=== PATIENT | female | born 1960 | race Caucasian/White ===

== ENCOUNTER 2017-03-22 18:59 | Emergency (ER) | payer MEDICAID, MEDICARE ==
[2017-03-22 23:16] LABS: #Basophils 0.1 thou/uL (0.0-0.2); #Eosinphils 0.1 thou/uL (0.0-0.7); #Lymphocytes 1.6 thou/uL (1.20-3.40); #Monocytes 0.4 thou/uL (0.11-0.59); #Neutrophils 6.2 thou/uL (1.40-6.50); %Basophils 0.8 % (0.0-1.0); %Eosinophils 0.8 % (0.0-10.0); %Lymphocytes 18.7 % (21.0-51.0); %Monocytes 5.3 % (0.0-10.0); Hematocrit 41.1 % (36.0-47.0); Mean Platelet Volume 6.7 fL (7.4-10.4); Red Blood Cell (RBC) Count 4.48 mill/uL (4.20-5.40); White Blood Cell (WBC) Count 8.3 thou/uL (4.8-10.8)
--- NOTE | 2017-03-22 23:25 | CT ---
CT BRAIN WITHOUT CONTRAST: 03/22/17 HISTORY: Altered mental status. FINDINGS: Comparison is made with exam of 11/04/09. No evidence of acute infarct, hemorrhage or midline shift or abnormal extra-axial fluid collections are seen. The ventricular size is appropriate and the basilar cisterns are patent. The bony calvariu m is intact. The visualized paranasal sinuses and mastoid air cells are well aerated. IMPRESSION: No CT evidence of acute intracranial process. POS: [facility]
[2017-03-22 23:39] LABS: Anion Gap 14 mmol/L (10-20); BUN (Urea Nitrogen) 14 mg/dL (9.8-20.1); CK (CPK) 127 U/L (29-168); Calc. Creatinine Clearance 0 mL/min (70-130); Calcium 9.4 mg/dL (7.8-10.44); Carbon Dioxide 29 mmol/L (22-29); Chloride 98 mmol/L (98-107); Estimated GFR-MDRD 37
[2017-03-22 23:45] LABS: Troponin I Less than 0.010 ng/mL (< 0.028)
[2017-03-22 23:59] LABS: Bilirubin Negative (Negative); Blood, Urine Negative (Negative); Glucose, Urine (Dipstick) Negative (Negative); Ketone, Urine Negative (Negative); Nitrite Positive (Negative); Protein, Urine (Dipstick) Negative (Neg-Trace)
[2017-03-23 00:02] LABS: Bacteria/HPF 4+ HPF (None Seen); Hyaline Casts/LPF 0-3 HYALINE CAST LPF (0-3 Hyaline); RBC/HPF 0-3 HPF (0-3); Squamous Epithelial 0-3 HPF (0-3)
[2017-03-23 00:07] LABS: Amphetamine Not Detected (NotDetected); Methadone Not Detected (NotDetected); Methamphetamine Not Detected (NotDetected)
[2017-03-23] MEDS ORDERED: Potassium Chloride 20 MEQ TAB ONE (00:29)
[2017-03-23] MEDS ORDERED: cefTRIAXone\\ROCEPHIN 2 GM VIAL ONE (00:29)
== END 2017-03-23 01:03 | disposition home or self-care (01) ==
LOC: ERS 18:59
DX: E87.6 Hypokalemia (principal); N39.0 Urinary tract infection, site not specified; E78.5 Hyperlipidemia, unspecified; I10 Essential (primary) hypertension; I48.91 Unspecified atrial fibrillation; J44.9 Chronic obstructive pulmonary disease, unspecified; F41.9 Anxiety disorder, unspecified; F32.9 Major depressive disorder, single episode, unspecified; F17.210 Nicotine dependence, cigarettes, uncomplicated; Z79.899 Other long term (current) drug therapy
CPT/HCPCS: 36415; 70450; 80048; 80306; 81003; 81015; 82553; 84484; 85025; 96365; J0696

== ENCOUNTER 2017-03-24 13:49 | Observation (INO) | payer MEDICARE ==
[2017-03-24 14:24] LABS: #Monocytes 1.1 thou/uL (0.11-0.59); #Neutrophils 11.1 thou/uL (1.40-6.50); %Basophils 0.3 % (0.0-1.0); %Eosinophils 0.3 % (0.0-10.0); %Lymphocytes 14.1 % (21.0-51.0); %Monocytes 7.7 % (0.0-10.0); Hematocrit 40.5 % (36.0-47.0); Mean Platelet Volume 7.1 fL (7.4-10.4); Red Blood Cell (RBC) Count 4.41 mill/uL (4.20-5.40); White Blood Cell (WBC) Count 14.2 thou/uL (4.8-10.8)
[2017-03-24 14:45] LABS: ALT (SGPT) Less than 7 U/L (8-55); AST (SGOT) 11 U/L (5-34); Alkaline Phosphatase 59 U/L (40-150); Anion Gap 14 mmol/L (10-20); BUN (Urea Nitrogen) 12 mg/dL (9.8-20.1); Bilirubin, Total 0.9 mg/dL (0.2-1.2); Calc. Creatinine Clearance 0 mL/min (70-130); Calcium 9.4 mg/dL (7.8-10.44); Carbon Dioxide 27 mmol/L (22-29); Chloride 97 mmol/L (98-107); Estimated GFR-MDRD 29; Globulin 2.7 g/dL (2.4-3.5)
--- NOTE | 2017-03-24 14:57 | CT ---
HEAD CT WITHOUT CONTRAST: Date: 03-24-17 Comparison: 03-22-17 History: Altered mental status, urinary tract infection, facial droop. Technique: Serial axial CT imaging at 5 mm intervals from vertex through skull base without contrast . FINDINGS: The imaged paranasal sinuses/mastoid air cells are well aerated. There is no displaced calvarial fra cture, intracranial hemorrhage, midline shift of mass effect. IMPRESSION: No acute findings. POS: [facility]
[2017-03-24 15:38] LABS: Bilirubin Negative (Negative); Blood, Urine Negative (Negative); Glucose, Urine (Dipstick) Negative (Negative); Ketone, Urine Negative (Negative); Nitrite Negative (Negative); Protein, Urine (Dipstick) Negative (Neg-Trace)
[2017-03-24 17:44] LABS: Acetaminophen Less than 6.0 mcg/mL (10.0-30.0); Salicylate Less than 8.0 mg/dL (15.0-30.0)
[2017-03-24 17:46] LABS: Amphetamine Not Detected (NotDetected); Methadone Not Detected (NotDetected); Methamphetamine Not Detected (NotDetected)
[2017-03-24] MEDS ORDERED: Acetaminophen 325 MG TAB PO PRN ×2 (18:28→20:41)
[2017-03-24] MEDS ORDERED: Ondansetron HCl/PF 4 MG/2 ML Vial IVP PRN (18:28)
[2017-03-24] MEDS ORDERED: Ondansetron ODT 4 MG TAB SL PRN (18:28)
[2017-03-24 19:47] VITALS: BMI 29.2
[2017-03-24] MEDS ORDERED: Ondansetron ODT 4 MG TAB PO PRN (20:41)
[2017-03-24] MEDS ORDERED: Diazepam 5 MG TAB PO PRN (22:20)
--- NOTE | 2017-03-24 22:38 | PDOC.EVN ---
Event Note - Event Note Event Note: Attending Addendum I personally evaluated the patient and discussed the management with Dr. Smith. I have reviewed her written H&P and it is repeated by me. I agree with the History, Examination, Assessment and Plan documented above with any addition or exceptions noted below. Mrs Wolfe has a progressive encephalopathy over the past 10 days characterized by waxing and waning awareness of her situation. At the moment she does not have the capacity to make medical deicions but our resident physicians have spoken to her family members and they consent to our care plan. While there is some concern for stroke, on my exam I do appreciate a right facial droop or weakness. I do not a left jaun-madibular swelling and tenderness that is suggestive of an abscess. her dentition is poor. w will obtain an CT scan to better eval this. An MRI of the brain will put to rest concerns for CVA. I also note tremors in her hands and lower legs. She has a hard time cooperating with my exam. I do not appreciate any clonus. Reflexes are brisk. Patient's conversation are mostly incoherent and random. She has no nuchal rigidity. We favor Serotonin Syndrome as the etiology for her encephalopathy. There is no evidence of meningitis. A laboratory workup to rule out other common causes is pending. I have ordered some Valium to help with her agitation. We have stopped all serotonin promoting meds. She is hemodynamically stable. Her vitals are normal. Clinda,ycin has been ordered for a suspected peridontal infection with possible abscess. ENT consult planned for tomorrow. Ct ordered.
[2017-03-24] MEDS: Sodium Chloride 0.9% 1,000 ML IV SCH (22:43)
[2017-03-24] MEDS: Clindamycin 150 MG CAP PO SCH (22:44)
[2017-03-25] MEDS: Potassium Chloride 20 MEQ TAB PO SCH ×2 (01:30→01:42)
[2017-03-25] MEDS ORDERED: Potassium Chloride 40 MEQ in Sodium Chloride 0.9% 250 ML 250 ML IVPB SCH (02:00)
[2017-03-25 04:50] LABS: #Lymphocytes 1.4 thou/uL (1.20-3.40); #Monocytes 0.8 thou/uL (0.11-0.59); %Basophils 0.4 % (0.0-1.0); %Eosinophils 0.5 % (0.0-10.0); %Lymphocytes 17.4 % (21.0-51.0); %Monocytes 9.2 % (0.0-10.0); Hematocrit 36.3 % (36.0-47.0); Mean Platelet Volume 6.7 fL (7.4-10.4); Red Blood Cell (RBC) Count 3.94 mill/uL (4.20-5.40); White Blood Cell (WBC) Count 8.2 thou/uL (4.8-10.8)
[2017-03-25 05:18] LABS: Anion Gap 11 mmol/L (10-20); BUN (Urea Nitrogen) 15 mg/dL (9.8-20.1); Calc. Creatinine Clearance 54 mL/min (70-130); Calcium 8.6 mg/dL (7.8-10.44); Carbon Dioxide 28 mmol/L (22-29); Chloride 99 mmol/L (98-107); Estimated GFR-MDRD 37
[2017-03-25] MEDS: Clindamycin 150 MG CAP PO SCH ×3 (05:42→21:28)
--- NOTE | 2017-03-25 05:55 | PDOC.FM ---
- Subjective Subjective: Patient has no questions or concerns this morning. States that she is ready to be home. She denies fever, chills, chest pain, n/v/d/abd pain. She states that she came to the hospital because she was short of breath. - Objective MAR Reviewed: Yes Vital Signs & Weight: Vital Signs (12 hours) Temp Pulse Resp BP Pulse Ox 03/25/17 03:10 99.2 F 78 18 97/53 L 95 03/25/17 00:00 99.4 F 80 18 103/64 94 L 03/24/17 20:05 99.1 F 86 20 03/24/17 18:23 99.1 F 86 20 103/63 96 Weight Weight 79.651 kg I&O: 03/23/17 03/24/17 03/25/17 06:59 06:59 06:59 Intake Total 480 Balance 480 Result Diagrams: 03/25/17 04:24 03/25/17 04:24 Radiology Reviewed by me: Yes Phys Exam - Physical Examination Constitutional: NAD HEENT: moist MMs, sclera anicteric poor dentition, mandibular mass on left, TTP Neck: supple, full ROM Respiratory: no wheezing, no rales, no rhonchi, clear to auscultation bilateral Cardiovascular: RRR, no significant murmur, no rub Gastrointestinal: soft, non-tender, no distention, positive bowel sounds Strength 5/5 UE/LE, Clonus present b/l, slow movement, rigidity present Neurological: moves all 4 limbs Psychiatric: A&O x 3 Dx/Plan (1) Altered mental status Code(s): R41.82 - ALTERED MENTAL STATUS, UNSPECIFIED Status: Acute Plan: Serotonin syndrome vs CVA vs peridontal abscess Hx difficult to obtain due to altered mentation, Physical exam difficult because of lack of cooperation -suspicion is highest for serotonin syndrome: currently holding serotonin promoting meds -checking brain MRI today -ordered facial bone CT -started clindamycin, IVFs -UA neg, UDS neg, TSH neg (2) Mandibular swelling Code(s): R22.0 - LOCALIZED SWELLING, MASS AND LUMP, HEAD Status: Acute Plan: CT of facial bones today -clindamycin -considering consulting ENT today (3) Weakness Code(s): R53.1 - WEAKNESS Status: Acute Plan: Per pt history, patient is rigid. -likely secondary to #1 (4) ROLANDO (acute kidney injury) Code(s): N17.9 - ACUTE KIDNEY FAILURE, UNSPECIFIED Status: Acute Plan: Cr initially was 1.81, now down to 1.41 -IVFs NS @ 100, will continue to trend (5) HTN (hypertension) Code(s): I10 - ESSENTIAL (PRIMARY) HYPERTENSION Status: Chronic Plan: Holding home blood pressure medications at this time. BP is currently 97/53 -will continue to monitor vitals (6) HLD (hyperlipidemia) Code(s): E78.5 - HYPERLIPIDEMIA, UNSPECIFIED Status: Chronic Plan: Currently holding home meds for now. (7) COPD (chronic obstructive pulmonary disease) Status: Chronic Plan: Monitoring respiratory status and vitals closely -currently holding home meds -patient is currently stable (8) Bipolar disorder Code(s): F31.9 - BIPOLAR DISORDER, UNSPECIFIED Status: Chronic Plan: Holding home meds at this time until we have a better idea of source of AMS
[2017-03-25] MEDS ORDERED: FLU VACC QS2017-18 36 mo. & older 0.5 ML SYRINGE IM ONE (09:00)
[2017-03-25] MEDS ORDERED: Cyproheptadine 4 MG TAB PO SCH (09:00)
--- NOTE | 2017-03-25 10:11 | CT ---
CT FACIAL BONES WITHOUT CONTRAST: Date: 03/25/17 HISTORY: Swelling on left side of face. Evaluate for abscess. COMPARISON: None. TECHNIQUE: Noncontrast maxillofacial CT is performed in the axial plane. Reformatted images are submitted for i nterpretation. Contrast was not administered due to low GFR. FINDINGS: There is adequate aeration of the visualized paranasal sinuses and mastoid air cells. Bilateral pter ygopalatine fossae are symmetric. Visualized brain parenchyma demonstrates age-appropriate atrophy. Bilateral ocular lenses are approp riately located. Both globes are intact. Retrobulbar fat is preserved. Symmetric attenuation of the optic nerves and ocular rectus muscles. Limited evaluation of the oral cavity due to dental amalgam artifact. Midline fatty raphe of the ton may is preserved. With regard to the osseous margin of the maxillofacial bones, no evidence of fracture. There is periapical lucency involving multiple teeth. The osseous margins of the maxillae appear to be maintained. Periapical lucency involving the posterior most right maxillary molar teeth is noted . There is lucency involving the posterior left mandible due to periapical abscess of the posterior most left mandibular molar tooth. Despite lucency, no obvious associated inflammatory change. There is mild asymmetric soft tissue swelling/gingival swelling along the left aspect of the mandibl e. A drainable abscess is not appreciated. There is mild induration of the soft tissues and subcutan eous fat at the level of the mandible. There are borderline enlarged reactive bilateral Level I and Level II lymph nodes. Nonspecific bilateral Level V lymph nodes are noted. IMPRESSION: 1. Periapical lucencies, due to periodontal disease/periapical abscesses. There is evidence of barbara ical erosion of the posterior left mandible, without associated abscess. 2. No CT evidence of a drainable soft tissue abscess. Induration of the subcutaneous fat and soft t issues at the level of the mandible are noted. POS: [facility]
[2017-03-25] MEDS ORDERED: Ibuprofen 600 MG TAB PO PRN (10:20)
--- NOTE | 2017-03-25 11:56 | ADD-PRG ---
DATE OF SERVICE: 03/25/2017 This is an addendum to the note of Dr. Jb Viera. Ms. Wolfe was admitted with probable serotonin syndrome. She is hyperreflexic, extremely "fidgety";results of an MRI are pending. Her CBC demonstrates white count of 8200 with hemoglobin 12.3, hematocrit 36.3. Serum electrolytes are normal. She has an elevated creatinine 1.44 with a GFR of 37. TSH is normal at 0.81. ASSESSMENT: Serotonin syndrome. She has been given benzodiazepines and she is now much calmer. She is no longer fidgety and she no longer has tremor. She does, however, have inducible clonus. Her vital signs are stable. We will therefore continue to monitor her and withhold Periactin. Should her vital signs become unstable, should she develop hyperthermia or should she become agitated, we might consider the use of Periactin. MTDD
--- NOTE | 2017-03-25 16:27 | MRI ---
MRI OF THE BRAIN WITHOUT CONTRAST: Indication: Concern for stroke. Comparison: Noncontrast CT of the brain dated 03-24-17. FINDINGS: No area of restricted diffusion is seen to suggest the presence of acute ischemia. No intracranial h emorrhage is demonstrated. The septum pellucidum and third ventricle are midline. There are appropri ate flow voids seen within the major intracranial vessels. There are a few scattered areas of puncta te foci of T2 hyperintensity within the periventricular subcortical white matter. These are nonspeci fic and can be seen with chronic small vessel white matter ischemic change. The skull and extracrani al soft tissues appear within normal limits. IMPRESSION: 1. No acute intracranial abnormality. 2. Mild chronic small vessel ischemic change. POS: [facility]
[2017-03-25] MEDS: Sodium Chloride 0.9% 1,000 ML IV SCH ×2 (16:38→16:47)
[2017-03-26] MEDS: Sodium Chloride 0.9% 1,000 ML IV SCH (02:15)
[2017-03-26 05:34] LABS: #Eosinphils 0.1 thou/uL (0.0-0.7); #Lymphocytes 1.1 thou/uL (1.20-3.40); #Monocytes 0.5 thou/uL (0.11-0.59); #Neutrophils 4.7 thou/uL (1.40-6.50); %Basophils 0.2 % (0.0-1.0); %Eosinophils 0.9 % (0.0-10.0); Mean Platelet Volume 6.7 fL (7.4-10.4); White Blood Cell (WBC) Count 6.3 thou/uL (4.8-10.8)
[2017-03-26 05:51] LABS: Anion Gap 12 mmol/L (10-20); BUN (Urea Nitrogen) 13 mg/dL (9.8-20.1); Calc. Creatinine Clearance 72 mL/min (70-130); Calcium 8.5 mg/dL (7.8-10.44); Carbon Dioxide 25 mmol/L (22-29); Chloride 104 mmol/L (98-107); Estimated GFR-MDRD 53
[2017-03-26] MEDS: Clindamycin 150 MG CAP PO SCH (05:58)
--- NOTE | 2017-03-26 06:09 | HP-2 ---
CODE STATUS: FULL. PRIMARY CARE PHYSICIAN: Dave Simon DO at [facility]. ATTENDING: Benson Viera M.D. RESIDENT: Kitty Smith DO. HISTORIAN: Sister. CHIEF COMPLAINT: Altered mental status. HISTORY OF PRESENT ILLNESS: The patient is a 56-year-old female with past medical history of hypertension, hyperlipidemia, bipolar disorder and depression who was sent from clinic due to acute altered mental status onset 10 days ago and worsening. She was seen in the ED 2 days ago, diagnosed with UTI, given nitrofurantoin with no improvement. The patient has been living with her sister. Her sister reports that she has had no recent illnesses, no recent medication changes, has had multiple falls within the past 2 days because of lack of stability on her feet. Denies cough, pain of any sort, nausea, vomiting and diarrhea. The sister reports she thinks the patient is taking medications appropriately. In the ER, they did a head CT, which was negative. PAST MEDICAL HISTORY: 1. Hypertension. 2. Hyperlipidemia. 3. Bipolar disorder. 4. Depression. PAST SURGICAL HISTORY: 1. Hysterectomy. 2. Tonsillectomy. ALLERGIES: No known drug allergies. MEDICATIONS: 1. Bupropion 300 mg. 2. Simvastatin 20 mg. 3. Benztropine 1 mg p.o. b.i.d. 4. Lamictal 25 mg. 5. Amlodipine 10 mg. 6. Sertraline 100 mg. FAMILY HISTORY: Noncontributory. SOCIAL HISTORY: No tobacco, alcohol or drug use. REVIEW OF SYSTEMS: Unable to obtain. PHYSICAL EXAMINATION: VITAL SIGNS: Blood pressure 103/63, pulse 86, respiratory rate 20, T-max 99.1, pulse ox 96% on room air. Current weight 79.6 kilograms. GENERAL: The patient is alert and oriented x2, no acute distress, very tremulous throughout. EYES: Dilated pupils at 4 mm. ENT: The patient with poor dentition, also with left mandibular swelling and associated fluctuance, no erythema and is tender to palpation. NECK: Supple, without lymphadenopathy or nuchal rigidity. CARDIOVASCULAR: Regular rate and rhythm. No murmurs. Radial pulses 2+. RESPIRATORY: Normal effort, no retractions, clear to auscultation bilaterally. SKIN: Warm and dry without lesions. ABDOMEN: Soft, nontender. Bowel sounds present. EXTREMITIES: No cyanosis or edema. MUSCULOSKELETAL: Structure within normal limits. Muscle strength 5/5. The patient does have significant rigidity throughout upper extremity and lower extremity. NEUROLOGIC: The patient with possible right cheek decreased sensation, possible right-sided facial droop and a slight tongue deviation to the right on exam. PSYCHIATRIC: Very confused. The patient is not able to follow commands and not able to comprehend questions and respond appropriately. LABORATORY DATA: CBC, white count 14.2, hemoglobin 13.5, hematocrit 40.5, platelets 255. Chemistry: Sodium 135, potassium 3.3, chloride 99, CO2 of 28, BUN 15, creatinine 1.81, glucose 162, calcium 9.4, AST 11, ALT less than 7, alkaline phosphatase 59, total protein 7.0, albumin 4.3, total bilirubin 0.9. Vitamin B12 is 225. UDS is negative. Acetaminophen is negative. Salicylates negative. Alcohol is less than 10. TSH is 0.8148. UA specific gravity 1.011, blood negative, protein negative, leukocyte esterase negative, nitrites negative, ketones negative, glucose negative. IMAGING: Brain CT with no acute findings. ASSESSMENT AND PLAN: 1. Encephalopathy secondary to possible serotonin syndrome versus cerebrovascular accident. Admit to stroke obs. Neuro checks and initiate stroke protocol. The patient is taking Lamictal, bupropion, and Sertraline, initially tachycardic, muscle rigidity, dilated pupils, which leads to possible serotonin syndrome. We will get an MRI in the morning. Check TSH, B12, folate , thiamine, HIV, RPR and hepatitis C levels. We will give Valium for agitation. Urine and blood cultures pending. 2. Left periodontal infection. We will start clindamycin and consult ENT in the morning. 3. Bipolar disorder. I have discontinued all psych medications for now due to possible serotonin syndrome. Valium for agitation. 4. Acute kidney injury. Check urine studies. The patient with maintenance fluids and monitor with BMP in the morning. 5. Hypokalemia, replete and monitor. 6. Hypertension. We will start home amlodipine and Lisinopril/HCTZ combination. DISPOSITION AND LENGTH OF HOSPITAL STAY: 1-2 days. Symptomatic medications will be provided. History and physical exam as well as management were discussed with Dr. Benson Viera. [facility]
--- NOTE | 2017-03-26 06:47 | PDOC.FM ---
- Subjective Subjective: Ms. Wolfe is doing well this morning. States that she is feeling better than yesterday and that she would like to go home today. She denies chest pain, n/v/ d. She still has the tremors. - Objective MAR Reviewed: Yes Vital Signs & Weight: Vital Signs (12 hours) Temp Pulse Resp BP Pulse Ox 03/26/17 03:40 98.8 F 82 18 121/69 97 03/25/17 19:20 98.5 F 90 20 162/73 H 95 Weight Weight 79.651 kg I&O: 03/24/17 03/25/17 03/26/17 06:59 06:59 06:59 Intake Total 480 3371 Output Total 1850 Balance 480 1521 Result Diagrams: 03/26/17 05:23 03/26/17 05:23 Radiology Reviewed by me: Yes Phys Exam - Physical Examination Constitutional: NAD HEENT: moist MMs, sclera anicteric Neck: supple, full ROM Respiratory: no wheezing, no rales, no rhonchi, clear to auscultation bilateral Cardiovascular: RRR, no significant murmur, no rub Gastrointestinal: soft, non-tender, no distention Musculoskeletal: no edema, pulses present Neurological: moves all 4 limbs tremors, clonus still present in both LEs Psychiatric: normal affect, A&O x 3 Dx/Plan (1) Altered mental status Code(s): R41.82 - ALTERED MENTAL STATUS, UNSPECIFIED Status: Acute Plan: Serotonin syndrome vs CVA vs peridontal abscess -Brain MRI negative-mild chronic small vessel ischemic changes, otherwise negative -CT facial bones-periapical abscesses, no drainable soft tissue abscesses -suspicion is highest for serotonin syndrome: currently holding serotonin promoting meds -started clindamycin, IVFs -UA neg, UDS neg, TSH neg (2) Mandibular swelling Code(s): R22.0 - LOCALIZED SWELLING, MASS AND LUMP, HEAD Status: Acute Plan: CT facial bones- showed periapical abscesses, no drainable soft tissue abscess -clindamycin -will need to follow up with dentist op (3) Weakness Code(s): R53.1 - WEAKNESS Status: Acute Plan: Per pt history, patient is rigid. -likely secondary to #1 -symptoms have improved today (4) ROLANDO (acute kidney injury) Code(s): N17.9 - ACUTE KIDNEY FAILURE, UNSPECIFIED Status: Acute Plan: Cr initially was 1.81, now down to 1.07 -IVFs NS @ 100, will continue to trend (5) HTN (hypertension) Code(s): I10 - ESSENTIAL (PRIMARY) HYPERTENSION Status: Chronic Plan: Holding home blood pressure medications at this time. BP is currently 121/69 -will continue to monitor vitals (6) HLD (hyperlipidemia) Code(s): E78.5 - HYPERLIPIDEMIA, UNSPECIFIED Status: Chronic Plan: Currently holding home meds for now. Will continue statin on discharge (7) COPD (chronic obstructive pulmonary disease) Status: Chronic Plan: Monitoring respiratory status and vitals closely -currently holding home meds -patient is currently stable -no changes today (8) Bipolar disorder Code(s): F31.9 - BIPOLAR DISORDER, UNSPECIFIED Status: Chronic Plan: Holding home meds at this time until we have a better idea of source of AMS. Will need to adjust bipolar medications to avoid serotonin syndrome in future She will need close follow up
[2017-03-26 11:20] VITALS: TEMP 98.7
--- NOTE | 2017-03-26 11:20 | ADD-PRG ---
DATE OF SERVICE: 03/26/2017 This is an addendum to the note of Dr. Jb Viera. Ms. Wolfe is awake, alert, oriented this morning. She is in no distress. We have instructed her to stop her SSRI and Wellbutrin. She will resume Lamictal and follow up with [facility] for further adjustm ent of her medications. Serotonin syndrome has resolved and she is now ready for discharge.
[2017-03-26 12:54] VITALS: BP 117/69
[2017-03-26 15:30] LABS: Folate,Hemolysate 295.9 ng/mL (Not Estab.); Hematocrit 34.5 % (34.0-46.6); RBC Folate Test Component 858 ng/mL (>498)
[2017-03-26] MEDS ORDERED: Atorvastatin Calcium 10 MG TAB PO SCH (21:00)
--- NOTE | 2017-03-27 07:03 | DIS-2 ---
DATE OF ADMISSION: 03/24/2017 DATE OF DISCHARGE: 03/26/2017 RESIDENT: Jb Viera MD ADMITTING ATTENDING: Benson Viera M.D. DISCHARGE ATTENDING: Wang Mckenna MD CONSULTATIONS: None. PROCEDURES: 1. Brain CT. Impression: No acute findings. 2. Brain MRI. Impression: No acute intracranial abnormalities, mild chronic small vessel ischemic changes. 3. CT of facial bones. Impression: Periapical lucencies due to periodontal disease/periapical abs cesses. There is evidence of cortical erosion of the posterior left mandible, without associated ab scess. No CT evidence of drainable soft tissue abscess. Induration of subcutaneous fat and soft ti ssue at the level of the mandible are noted. PRIMARY DIAGNOSIS: Serotonin syndrome. SECONDARY DIAGNOSES: 1. Periapical abscess. 2. Altered mental status. 3. Weakness. 4. Hypertension. 5. Hyperlipidemia. 6. Acute kidney injury. 7. Bipolar disorder. DISCHARGE MEDICATIONS: 1. Simvastatin 20 mg p.o. daily. 2. Amlodipine 10 mg p.o. daily. 3. Lamotrigine 25 mg p.o. daily. 4. Clindamycin 600 mg p.o. q.8 hours for 7 days. DISCONTINUED MEDICATIONS: 1. Lisinopril/HCTZ 20/12.5 one tablet p.o. daily. 2. Benztropine 1 mg p.o. b.i.d. 3. Zoloft 100 mg p.o. daily. 4. Wellbutrin-XL 300 mg p.o. daily. HISTORY OF PRESENT ILLNESS AND HOSPITAL COURSE: Sonya Wolfe is a 56-year-old female with past [facility] history of hypertension, hyperlipidemia, bipolar disorder and depression who was sent over from [facility] due to acute altered mental status, onset 10 days ago. She was seen in the ED 2 days ago diagnosed with UTI and given nitrofurantoin that has not had any improvement. The patient has been living with her sister. The sister reports that she has had no recent illnesse s. No medication changes. She has had multiple falls within the last 2 days because of the lack of stability. The sister reports that she thinks the patient was taking her medications appropriately prior to this admission. The altered mental status had been waxing and waning, starting 10 days ag o and worsening over the last 3 days. In the ER, they did a head CT which was negative. The patien victor manuel was admitted to observation and the patient's Lamictal, bupropion, and sertraline were held. The patient's physical exam was significant for tachycardia, muscle rigidity, dilated pupils, and clonus . Stroke was ruled out with brain MRI. A CT of the head and brain MRI that were negative with the exception of chronic small vessel ischemic changes. The patient's physical exam was also remarkable for swelling of the left mandible. On CT of facial bones, it was found that she had periapical abs cesses, but no drainable soft tissue abscess. She was started on clindamycin. The patient was diag nosed with serotonin syndrome and we considered starting cyproheptadine on the patient, but her bloo d pressure was fairly low at 97/53. So cyproheptadine was held and the patient was monitored closel y. Her symptoms began to resolve. On the day of discharge, physical therapy saw the patient and re commended that she will be sent home with home health physical therapy and a rolling walker. The stuart mendoza's mental status improved during the admission. The patient's creatine kinase was normal on ad [place] and remained normal throughout the admission. TSH was normal. B12 is normal. Folate was n ormal. Syphilis, hepatitis C and HIV were nonreactive. UDS was negative. After the patient had im provement of her symptoms by 03/26/2017, she was ready for discharge. The patient was advised to no t continue the Wellbutrin or sertraline after discharge and to follow up with [facility] within 1 to 3 day s of discharge. The patient was also recommended to follow up with primary care physician to rechec k blood pressure and manage hypertension medications. He was also recommended that the patient foll ow up with dentist as soon as possible. The patient was in agreement with this plan. DISPOSITION: Guarded. DISCHARGE INSTRUCTIONS: 1. Location: Home with family support. 2. Diet: Heart healthy. 3. Activity: As tolerated. 4. Followup: Follow up with [facility] within the next 1-3 days and primary care physician at [facility] within the next 1-3 days and with the dentist as soon as possible.
[2017-03-27] MEDS ORDERED: lamoTRIgine 25 MG TAB PO SCH (09:00)
== END 2017-03-26 12:40 | disposition home or self-care (01) ==
LOC: ERS 13:49 → 2SW 16:55
PROVIDERS: ADMIT Family Medicine; ATTEND Family Medicine
DX: G92 Toxic encephalopathy (principal); T42.6X5A Adverse effect of other antiepileptic and sedative-hypnotic drugs, initial encounter; K04.7 Periapical abscess without sinus; R41.82 Altered mental status, unspecified; R53.1 Weakness; I10 Essential (primary) hypertension; E78.5 Hyperlipidemia, unspecified; N17.9 Acute kidney failure, unspecified; F31.9 Bipolar disorder, unspecified; E87.6 Hypokalemia; F17.200 Nicotine dependence, unspecified, uncomplicated; R22.0 Localized swelling, mass and lump, head; J44.9 Chronic obstructive pulmonary disease, unspecified; R25.1 Tremor, unspecified; Z79.2 Long term (current) use of antibiotics
CPT/HCPCS: 51701; 70450; 70486; 70551; 80048 ×2; 80306; 80307; 81003; 82550 ×2; 82570; 82607; 82747; 82962; 84300; 84425; 84443; 85014; 85025 ×2; 86780; 86803; 87040; 87086; 87389; 90732; 93005; 96361 ×3; 96365; 96366; 97110; 97116 ×2; 97139 ×2; 97530; 99285; G0008; G0009; G0378; G8978; G8979; G8987; G8988; Q2036; 36415; 36416; 80053; 90471; 90682; A4216; G8996-GN-CI; G8996-GN-CJ; G8997-GN-CH; G8997-GN-CI; J3480; J7050

== ENCOUNTER 2018-09-07 14:59 | Observation (INO) | payer MEDICARE ==
[2018-09-07 15:31] LABS: #Basophils 0.1 thou/uL (0.0-0.2); #Eosinphils 0.1 thou/uL (0.0-0.7); #Lymphocytes 3.5 thou/uL (1.20-3.40); #Monocytes 0.8 thou/uL (0.11-0.59); #Neutrophils 6.6 thou/uL (1.40-6.50); %Basophils 0.8 % (0.0-1.0); %Eosinophils 1.2 % (0.0-10.0); %Lymphocytes 31.2 % (21.0-51.0); %Monocytes 7.4 % (0.0-10.0); %Neutrophils 59.4 % (42.0-75.0); Hemoglobin 14.6 g/dL (12.0-16.0); Mean Corpuscular Hemoglobin 30.3 pg (27.0-31.0); Mean Corpuscular Volume 89.2 fL (78.0-98.0); Mean Platelet Volume 6.8 fL (7.4-10.4); Platelet Count 312 thou/uL (130-400); RBC Distribution Width 13.3 % (11.5-14.5); Red Blood Cell (RBC) Count 4.81 mill/uL (4.20-5.40); White Blood Cell (WBC) Count 11.1 thou/uL (4.8-10.8)
--- NOTE | 2018-09-07 15:34 | RAD ---
RADIOGRAPH CHEST 2 VIEWS: HISTORY: 58-year-old female with chest pain with cough. FINDINGS: There is no air space density, pulmonary edema, pleural effusion, pneumothorax, or cardiomegaly. IMPRESSION: No acute cardiopulmonary findings. jn [] POS: [facility]
[2018-09-07 15:54] LABS: ALT (SGPT) 13 U/L (8-55); AST (SGOT) 18 U/L (5-34); Albumin 3.9 g/dL (3.5-5.0); Alkaline Phosphatase 89 U/L (40-150); Anion Gap 10 mmol/L (10-20); BUN (Urea Nitrogen) 18 mg/dL (9.8-20.1); Bilirubin, Total 0.8 mg/dL (0.2-1.2); CK (CPK) 210 U/L (29-168); Calc. Creatinine Clearance 0 mL/min (70-130); Calcium 9.1 mg/dL (7.8-10.44); Carbon Dioxide 27 mmol/L (22-29); Chloride 97 mmol/L (98-107); Estimated GFR-MDRD 52; Globulin 2.9 g/dL (2.4-3.5); Glucose 105 mg/dL (70-105); Lipase 72 U/L (8-78); Protein, Total 6.8 g/dL (6.0-8.3); Sodium 131 mmol/L (136-145)
[2018-09-07 16:07] LABS: Potassium 2.7 mmol/L (3.5-5.1)
[2018-09-07] MEDS ORDERED: Magnesium 2 GM/50 ML BAG (IN WATER) ONE (16:37)
[2018-09-07] MEDS ORDERED: Aspirin Chewable 81 MG TAB ONE (16:37)
[2018-09-07] MEDS ORDERED: Nitroglycerin 2% Ointment 1 INCH/1 GM Packet ONE (16:37)
[2018-09-07] MEDS ORDERED: Potassium Chloride 20 MEQ TAB ONE (16:37)
[2018-09-07] MEDS ORDERED: Potassium Chloride 40 MEQ in Sodium Chloride 0.9% 500 ML IVPB ONE (16:45)
--- NOTE | 2018-09-07 17:07 | PDOC.FPRHP ---
- History of Present Illness Chief Complaint: chest pressure History of Present Illness: 58 yr old female with PMH of HTN, HLD, COPD who was sent over from clinic for chest pressure during spirometry testing. Patient states that when she took a deep breath, she started coughing and then got chest pressure during the testing. She incidentally notes that every time she walks about 3/4 of a mile, she gets a similar pain. Describes it as a muscle cramp in her chest. Does not happen at rest. No diaphoresis or radiation. No nausea. She smokes about 3/4 pack a day of cig and has done this since her early 20s. No diarrhea, no vomiting. Nml nuclear med stress test in 2013. ED Course: she received nitro paste, ASA 325 mg, and 40 mEQ PO and 40mEQ IV of potassium. Also received 2 mg mag IV in ER. - Allergies/Adverse Reactions Allergies Allergy/AdvReac Type Severity Reaction Status Date / Time No Known Allergies Allergy Verified 03/24/17 19:25 - Home Medications Medication Instructions Recorded Confirmed Type Albuterol Sulfate [Albuterol 1 ampule INH PRN PRN 09/07/18 09/07/18 History Sulfate Neb] Atorvastatin Calcium 20 mg PO DAILY 09/07/18 09/07/18 History Diclofenac Sodium [Diclofenac 2 gm TOP QID 09/07/18 09/07/18 History Sodium 1% Gel] Hydrochlorothiazide 12.5 mg PO BID-WM 09/07/18 09/07/18 History Ipratropium [place] 1 ampule INH PRN PRN 09/07/18 09/07/18 History Lisinopril 20 mg PO DAILY 09/07/18 09/07/18 History Propranolol [Inderal] 10 mg PO DAILY 09/07/18 09/07/18 History hydrOXYzine [Atarax] 25 mg PO TID 09/07/18 09/07/18 History lamoTRIgine [LaMICtal] 50 mg PO DAILY 09/07/18 09/07/18 History - History PMHx: subclinical Hypothyroid, COPD, chronic tremor, asthma, HLD, HTN, depression, bipolar, hx of cervical ca PSHx: hysterectomy 2/2 cervical cancer, c section FHx: Grandfather- [place], Mom- parkinson. Dad- emphysema, alcoholism. Grandma- bone cancer, sister- thyroid issue Social: smoker (3/4 pack per day since her early 20's), no alcohol use, no drug use - Review of Systems General: denies: fever/chills, weight/appetite/sleep changes, night sweats ENT: denies: nasal congestion Respiratory: reports: shortness of breath. denies: cough Cardiovascular: reports: chest pain, palpitation Gastrointestinal: denies: nausea, vomiting, diarrhea, constipation, abdominal pain Genitourinary: denies: dysuria, polyuria Skin: denies: rashes, lesions Musculoskeletal: reports: pain, arthritis/arthralgias (knees) Neurological: denies: syncope, seizure, weakness Psychological: reports: anxiety, depression - Vital signs BP: [113/78] HR: [73] RR: [20] Tmax: [97.8] Pox: [99]% on [RA] Wt: [85.73 kg] - Physical Exam Constitutional: NAD, awake, alert and oriented HEENT: normocephalic and atraumatic, EOMI, no scleral icterus, MMM Neck: supple, trachea midline, no bruits Chest: other (substernal tenderness to palpation) Heart: RRR, normal S1/S2, no murmurs/rubs/gallops, pulses present (2+ bilateral post tibial and dorsalis pedis pulses) Lungs: CTAB, no respiratory distress, good air movement, no rales/rhonchi, no wheezing, no retractions Abdomen: soft, non-tender, no masses/distention Musculoskeletal: normal structure, normal tone Neurological: no focal deficit, CN II-XII intact, normal sensation Skin: no rash/lesions, no jaundice Heme/Lymphatic: no unusual bruising or bleeding Psychiatric: normal mood and affect, good judgment and insight, intact recent and remote memory FMR H&P: Results - Labs Result Diagrams: 09/07/18 15:22 09/07/18 15:22 Lab results: WBC 11.1 thou/uL (4.8-10.8) H 09/07/18 15:22 Hgb 14.6 g/dL (12.0-16.0) 09/07/18 15:22 Hct 42.9 % (36.0-47.0) 09/07/18 15:22 MCV 89.2 fL (78.0-98.0) 09/07/18 15:22 Plt Count 312 thou/uL (130-400) 09/07/18 15:22 Neutrophils % 59.4 % (42.0-75.0) 09/07/18 15:22 Sodium 131 mmol/L (136-145) L 09/07/18 15:22 Potassium 2.7 mmol/L (3.5-5.1) L* 09/07/18 15:22 Chloride 97 mmol/L (98-107) L 09/07/18 15:22 Carbon Dioxide 27 mmol/L (22-29) 09/07/18 15:22 BUN 18 mg/dL (9.8-20.1) 09/07/18 15:22 Creatinine 1.07 mg/dL (0.6-1.1) 09/07/18 15:22 Glucose 105 mg/dL (70-105) 09/07/18 15:22 Calcium 9.1 mg/dL (7.8-10.44) 09/07/18 15:22 Total Bilirubin 0.8 mg/dL (0.2-1.2) 09/07/18 15:22 AST 18 U/L (5-34) 09/07/18 15:22 ALT 13 U/L (8-55) 09/07/18 15:22 Alkaline Phosphatase 89 U/L (40-150) 09/07/18 15:22 Creatine Kinase 210 U/L (29-168) H 09/07/18 15:22 Serum Total Protein 6.8 g/dL (6.0-8.3) 09/07/18 15:22 Albumin 3.9 g/dL (3.5-5.0) 09/07/18 15:22 Lipase 72 U/L (8-78) 09/07/18 15:22 - EKG Interpretation EKG: EKG: Normal sinus problem, Left axis deviation, QTC 488 ms FMR H&P: A/P - Problem List (1) Atypical chest pain Current Visit: Yes Status: Acute Code(s): R07.89 - OTHER CHEST PAIN (2) Hypokalemia Current Visit: Yes Status: Acute Code(s): E87.6 - HYPOKALEMIA (3) HTN (hypertension) Current Visit: No Status: Chronic Code(s): I10 - ESSENTIAL (PRIMARY) HYPERTENSION (4) HLD (hyperlipidemia) Current Visit: No Status: Chronic Code(s): E78.5 - HYPERLIPIDEMIA, UNSPECIFIED (5) Anxiety Current Visit: Yes Status: Acute Code(s): F41.9 - ANXIETY DISORDER, UNSPECIFIED (6) Bipolar disorder Current Visit: No Status: Chronic Code(s): F31.9 - BIPOLAR DISORDER, UNSPECIFIED (7) COPD (chronic obstructive pulmonary disease) Current Visit: Yes Status: Chronic (8) Depression Current Visit: Yes Status: Acute Code(s): F32.9 - MAJOR DEPRESSIVE DISORDER , SINGLE EPISODE, UNSPECIFIED - Plan 58 yr old female with atypical chest pain Atypical chest pain -Heart score of 4 -stress in AM -check TSH, FLP hypokalemia -getting 40 mEq IV in ER -recheck in 6 hours with trops -mag nml HLD -consider increasing statin if indicated by FLP cont atorvastatin Tobacco Abuse -smoking cessation counseling provided HTN -cont home meds HLD -cont home meds bipolar -stable depression/anxiety -cont home meds chronic tremor -hold propranolol for stress PCP: Dr. Smion Code: full Dispo- obs and likely DC in less than 2 midnights FMR H&P: Upper Level - Plan Date/Time: 09/07/18 1702 I, [], have evaluated this patient and agree with findings/plan as outlined by business development intern resident. Pertinent changes/additions are listed here. Addendum - Attending - Attending Attestation Date/Time: 09/07/18 [id number] I personally evaluated the patient and discussed the management with Dr. Taylor/ Carmela. I agree with the History, Examination, Assessment and Plan documented above with any addition or exceptions noted below. Patient here for ACS r/o. Cardiac enzymes negative and no current chest pain. Will monitor overnight, trend enzymes. Hypokalemia, has been repleted and will recheck. Plan for cardiac stress in AM, last in 2013 was wnl.
[2018-09-07] MEDS ORDERED: Aspirin Chewable 81 MG TAB PO SCH (18:54)
[2018-09-07] MEDS ORDERED: Acetaminophen 325 MG TAB PO PRN (18:54)
[2018-09-07] MEDS ORDERED: Calcium Carbonate 500 MG ChewTAB PO PRN (18:54)
[2018-09-07] MEDS ORDERED: Ondansetron ODT 4 MG TAB PO PRN (18:54)
[2018-09-07] MEDS ORDERED: Nitroglycerin 0.4 MG TAB (25 Tab Bottle) SL PRN (18:54)
[2018-09-07 19:01] VITALS: BMI 31.8
[2018-09-07 19:50] LABS: Troponin I Less than 0.010 ng/mL (< 0.028)
[2018-09-07] MEDS ORDERED: Nicotine 14 MG PATCH TD SCH (20:00)
[2018-09-07] MEDS: hydrOXYzine 25 MG TAB PO SCH (21:56)
[2018-09-07 22:53] LABS: Anion Gap 9 mmol/L (10-20); BUN (Urea Nitrogen) 18 mg/dL (9.8-20.1); Calc. Creatinine Clearance 76 mL/min (70-130); Calcium 8.6 mg/dL (7.8-10.44); Carbon Dioxide 28 mmol/L (22-29); Chloride 101 mmol/L (98-107); Estimated GFR-MDRD 52; Glucose 103 mg/dL (70-105); Potassium 3.7 mmol/L (3.5-5.1); Sodium 134 mmol/L (136-145)
[2018-09-07 22:58] LABS: Troponin I Less than 0.010 ng/mL (< 0.028)
[2018-09-08 05:43] LABS: Anion Gap 12 mmol/L (10-20); BUN (Urea Nitrogen) 16 mg/dL (9.8-20.1); Calc. Creatinine Clearance 82 mL/min (70-130); Calcium 8.5 mg/dL (7.8-10.44); Carbon Dioxide 25 mmol/L (22-29); Cardiac Risk 4.5 (Less than 4.5); Chloride 102 mmol/L (98-107); Cholesterol 108 mg/dl (< 200 Desired); Estimated GFR-MDRD 57; Glucose 89 mg/dL (70-105); HDL Cholesterol 24 mg/dL (>60 Neg Risk); LDL Cholesterol, Calculated 68 mg/dL; Potassium 3.6 mmol/L (3.5-5.1); Sodium 135 mmol/L (136-145); Triglycerides 81 mg/dL (Less than 150)
--- NOTE | 2018-09-08 05:56 | PDOC.FM ---
- Subjective Subjective: Nursing reports she did well overnight. She had a minor headache relieved by tylenol. She denies chest pain, SOB, or abdominal pain this morning. She denies nausea, vomiting, or diarrhea. - Objective MAR Reviewed: Yes Vital Signs & Weight: Vital Signs (12 hours) Temp Pulse Resp BP BP Pulse Ox 09/08/18 04:06 98.5 F 76 16 100/52 L 96 09/07/18 23:48 98.4 F 72 20 103/57 L 98 09/07/18 18:33 97.7 F 74 20 116/64 100 Weight Weight 86.772 kg I&O: 09/06/18 09/07/18 09/08/18 06:59 06:59 06:59 Intake Total 560 Balance 560 Result Diagrams: 09/07/18 15:22 09/08/18 04:47 Phys Exam - Physical Examination Constitutional: NAD dry mucus membranes Neck: no JVD, full ROM Respiratory: no wheezing, no rales, clear to auscultation bilateral Cardiovascular: RRR, no significant murmur, no rub Gastrointestinal: soft, non-tender, no distention, positive bowel sounds Musculoskeletal: no edema, pulses present Neurological: moves all 4 limbs Psychiatric: normal affect, A&O x 3 Skin: cap refill <2 seconds Dx/Plan (1) Anxiety Code(s): F41.9 - ANXIETY DISORDER, UNSPECIFIED Status: Acute (2) Atypical chest pain Code(s): R07.89 - OTHER CHEST PAIN Status: Acute (3) Hypokalemia Code(s): E87.6 - HYPOKALEMIA Status: Acute (4) COPD (chronic obstructive pulmonary disease) Status: Chronic (5) Bipolar disorder Code(s): F31.9 - BIPOLAR DISORDER, UNSPECIFIED Status: Chronic (6) HLD (hyperlipidemia) Code(s): E78.5 - HYPERLIPIDEMIA, UNSPECIFIED Status: Chronic (7) HTN (hypertension) Code(s): I10 - ESSENTIAL (PRIMARY) HYPERTENSION Status: Chronic - Plan Plan: This is a 58 yo female with pmh of HTN, COPD, HLD, anxiety, bipolar disorder Atypical chest pain -Heart score of 4 -Troponin negative x3 -CXR negative -LDL/HDL 68/24 -Pending AM Stress test -TSH 1.3 Hypokalemia, resolved HLD -Maintain current statin level based on FLP CKD stage 3 -Appears at baseline Tobacco abuse -Encourage cessation COPD -Currently controlled without medications HTN -Continue home meds HLD -Continue home meds Bipolar -Stable, continue home meds Anxiety -Continue home meds Chronic tremor -Hold propranolol for stress Addendum - Attending - Attending Attestation Date/Time: 09/08/18 1409 I personally evaluated the patient and discussed the management with Dr. Joshi I agree with the History, Examination, Assessment and Plan documented above with any addition or exceptions noted below. ruled out ACS .Stable for dismissal encourage smoking cessation f/u with [facility].
[2018-09-08] MEDS ORDERED: lamoTRIgine 25 MG TAB PO SCH (09:00)
[2018-09-08] MEDS ORDERED: Atorvastatin Calcium 20 MG TAB PO SCH (09:00)
[2018-09-08] MEDS ORDERED: Hydrochlorothiazide 25 MG TAB PO SCH (09:00)
[2018-09-08] MEDS ORDERED: Lisinopril 20 MG TAB PO SCH (09:00)
[2018-09-08] MEDS ORDERED: Enoxaparin Sodium 40 MG/0.4 ML SYRINGE SC SCH (09:00)
--- NOTE | 2018-09-08 11:00 | NM ---
Nuclear medicine myocardial perfusion SPECT: 09/08/2018 HISTORY: 58-year-old female with hypertension, dyslipidemia, smoking, and family history of coronary artery di sease, presents with atypical chest pain. TECHNIQUE: Number of days: 1 Rest dose: 10 mCi technetium 99m sestamibi Stress: Lexiscan Stress dose: 30 mCi technetium 99m sestamibi FINDINGS: Radiopharmaceutical uptake is homogeneous throughout the left ventricular myocardium with no fixed de fect or reversible defect. Wall motion study: Normal Ejection fraction: Left ventricular ejection fraction is 85% IMPRESSION: Normal
[2018-09-08] MEDS: hydrOXYzine 25 MG TAB PO SCH (11:49)
[2018-09-08 12:03] VITALS: BP 116/67; TEMP 97.7
[2018-09-08] MEDS ORDERED: Regadenoson 0.4 MG/5 ML SYRINGE ONE (12:54)
--- NOTE | 2018-09-09 13:12 | DIS ---
DATE OF ADMISSION: 09/07/2018 DATE OF DISCHARGE: 09/08/2018 RESIDENT: Tj Joshi DO. CONSULTS: None. PROCEDURES: 1. Chest x-ray showing no acute cardiopulmonary findings. 2. Nuclear stress test showing an EF of 85%, otherwise normal test. PRIMARY DIAGNOSES: Atypical chest pain likely secondary to costochondritis, hypokalemia. SECONDARY DIAGNOSES: Hyperlipidemia, tobacco abuse, hypertension, bipolar, anxiety, chronic tremor. DISCHARGE MEDICATIONS: 1. Aspirin 81 mg p.o. daily. 2. Albuterol nebulizer one ampule p.r.n. shortness of breath and wheezing. 3. Atorvastatin 20 mg p.o. daily. 4. Diclofenac gel apply topical q.i.d. to affected area. 5. Hydrochlorothiazide 12.5 mg p.o. b.i.d. 6. Ipratropium bromide one ampule p.r.n. shortness of breath or wheezing. 7. Lamotrigine 50 mg p.o. daily. 8. Lisinopril 20 mg p.o. daily. 9. Propranolol 10 mg p.o. daily. Discontinued medications: None. BRIEF HISTORY OF PRESENT ILLNESS/HOSPITAL COURSE: This is a 58-year-old female with past medical history of hypertension, hyperlipidemia, and COPD, who presents to clinic with chest pressure during spirometry testing. She states she took a deep breath, started coughing, and chest pain started. She also states that she gets this pain whenever she is walking outside. The patient was admitted and stressed the following day with the results as above. Pertinent labs include troponin negative x3 as well as hypokalemia with potassium of 2.7 on admission and resolved upon discharge. Low potassium was likely secondary to albuterol use prior to admission. DISPOSITION: Stable. DISCHARGE INSTRUCTIONS: 1. Location: Home. 2. Diet: Heart healthy. 3. Activity: As tolerated. 4. Follow up with Dr. Simon in 7 days. Job ID: [id number]
--- NOTE | 2018-09-12 20:53 | EKG ---
Test Reason : Blood Pressure : / mmHG Vent. Rate : 082 BPM Atrial Rate : 082 BPM P-R Int : 164 ms QRS Dur : 088 ms QT Int : 418 ms P-R-T Axes : 055 -30 023 degrees QTc Int : 488 ms Normal sinus rhythm Left axis deviation Nonspecific ST abnormality Prolonged QT Abnormal ECG Confirmed by EZEQUIEL LAWRENCE DO ([id number]), clinical editor ALEKSANDR ZARATE ([id number]) on 09/12/2018 8:53:03 PM Referred By: Confirmed By:EZEQUIEL LAWRENCE DO
== END 2018-09-08 13:45 | disposition home or self-care (01) ==
LOC: ERS 14:59 → 2SW 18:53
PROVIDERS: ADMIT Family Medicine; ATTEND Family Medicine
DX: R07.89 Other chest pain (principal); E78.5 Hyperlipidemia, unspecified; I12.9 Hypertensive chronic kidney disease with stage 1 through stage 4 chronic kidney disease, or unspecified chronic kidney disease; N18.3 Chronic kidney disease, stage 3 (moderate); J44.9 Chronic obstructive pulmonary disease, unspecified; F17.210 Nicotine dependence, cigarettes, uncomplicated; F41.9 Anxiety disorder, unspecified; F31.9 Bipolar disorder, unspecified; E02 Subclinical iodine-deficiency hypothyroidism; E87.6 Hypokalemia; Z85.41 Personal history of malignant neoplasm of cervix uteri; Z90.710 Acquired absence of both cervix and uterus; Z79.82 Long term (current) use of aspirin; Z79.1 Long term (current) use of non-steroidal anti-inflammatories (NSAID); Z79.899 Other long term (current) drug therapy; Z98.890 Other specified postprocedural states
CPT/HCPCS: 71046; 78452; 80048 ×2; 80061; 82550; 83690; 83735; 84484 ×2; 93005; 93017; 96365; 96367; 99285; A9500; G0378; 36415; 80053; 84443; 85025; J1650; J2785; J3475; J3480; J7050

== ENCOUNTER 2018-10-15 09:43 | Outpatient (CLI) | payer MEDICARE ==
--- NOTE | 2018-10-15 10:33 | MMO ---
Bilateral MAMMO Bilat Screen [facility]. CLINICAL HISTORY: Patient is 58 years old and is seen for screening. The patient has the following family history of breast cancer: paternal aunt, malignant (generic). The patient has a history of cervical cancer at age 39. The patient has a history of right Ultrasound Guided Core Biopsy in December,. VIEWS: The views performed were: bilateral craniocaudal with tomosynthesis and bilateral mediolateral oblique with tomosynthesis. FILMS COMPARED: The present examination has been compared to prior imaging studies performed at [facility] on 07/06/2013, 05/05/2014 and 11/22/2015. MAMMOGRAM FINDINGS: There are scattered fibroglandular densities. Finding 1: There is a biopsy clip seen in the right breast. Finding 2: There are stable benign appearing calcifications seen in both breasts. There are no suspicious masses, suspicious calcifications, or new areas of architectural distortion. IMPRESSION: THERE IS NO MAMMOGRAPHIC EVIDENCE OF MALIGNANCY. A ROUTINE FOLLOW-UP MAMMOGRAM IN 1 YEAR IS RECOMMENDED. THE RESULTS OF THIS EXAM WERE SENT TO THE PATIENT. ACR BI-RADS Category 2 - Benign finding MAMMOGRAPHY NOTE: 1. A negative mammogram report should not delay a biopsy if a dominant of clinically suspicious mass is present. 2. Approximately 10% to 15% of breast cancers are not detected by mammography. 3. Adenosis and dense breasts may obscure an underlying neoplasm.
== END 2018-10-15 09:44 | disposition home or self-care (01) ==
LOC: BICMAMMO 09:43
PROVIDERS: ATTEND Student in an Organized Health Care Education/Training Program
DX: Z12.31 Encounter for screening mammogram for malignant neoplasm of breast (principal); Z85.41 Personal history of malignant neoplasm of cervix uteri; Z80.3 Family history of malignant neoplasm of breast
CPT/HCPCS: 77063; 77067

== ENCOUNTER 2019-10-26 09:04 | Outpatient (CLI) | payer MEDICARE ==
--- NOTE | 2019-10-26 09:34 | MMO ---
Bilateral MAMMO Bilat Screen [facility]. CLINICAL HISTORY: Patient is 59 years old and is seen for screening. The patient has the following family history of breast cancer: paternal aunt, malignant (generic). The patient has a history of cervical cancer at age 39. The patient has a history of right Ultrasound Guided Core Biopsy in December,. VIEWS: The views performed were: bilateral craniocaudal with tomosynthesis and bilateral mediolateral oblique with tomosynthesis. FILMS COMPARED: The present examination has been compared to prior imaging studies performed at [facility] on 07/06/2013, 05/05/2014, 11/22/2015 and 10/15/2018. This study has been interpreted with the assistance of computer-aided detection. MAMMOGRAM FINDINGS: There are stable benign appearing calcifications seen in both breasts. A biopsy clip is seen in the right breast. There are no suspicious masses, suspicious calcifications, or new areas of architectural distortion. IMPRESSION: THERE IS NO MAMMOGRAPHIC EVIDENCE OF MALIGNANCY. A ROUTINE FOLLOW-UP MAMMOGRAM IN 1 YEAR IS RECOMMENDED. THE RESULTS OF THIS EXAM WERE SENT TO THE PATIENT. ACR BI-RADS Category 2 - Benign finding MAMMOGRAPHY NOTE: 1. A negative mammogram report should not delay a biopsy if a dominant of clinically suspicious mass is present. 2. Approximately 10% to 15% of breast cancers are not detected by mammography. 3. Adenosis and dense breasts may obscure an underlying neoplasm. Reported by: YENNIFER LAZAR MD Electonically Signed: [id number]
== END 2019-10-26 09:05 | disposition home or self-care (01) ==
LOC: BICMAMMO 09:04
PROVIDERS: ATTEND Student in an Organized Health Care Education/Training Program
DX: Z12.31 Encounter for screening mammogram for malignant neoplasm of breast (principal); Z80.3 Family history of malignant neoplasm of breast; Z85.41 Personal history of malignant neoplasm of cervix uteri; Z91.89 Other specified personal risk factors, not elsewhere classified
CPT/HCPCS: 77063; 77067

== ENCOUNTER 2019-12-02 09:47 | Outpatient (CLI) | payer MEDICARE ==
--- NOTE | 2019-12-02 11:56 | CT ---
CT CHEST WITHOUT CONTRAST: Axial tomograms were obtained. Low-dose protocol was followed. INDICATION: History of tobacco dependency. History of asthma and COPD. COMPARISON: Comparison is made to a prior CTA of chest dated 11/04/2009. FINDINGS: Mild interstitial thickening is seen in the periphery of both lungs. This is a stable finding when c ompared to 2009. There is a 7 mm nodule seen in the axial plane along the fissure through the right middle lobe. This has more of a plate-like appearance in the sagittal and coronal plane. This nodular density is stab le from 2010. No other pulmonary nodule identified. No infiltrate or effusion. The mediastinum is unremarkable. There are numerous hepatic cysts which are partially imaged. A larger one in the posterior upper rig ht lobe of the liver appears to have enlarged since 2009 and measures up to 4 cm today. Another cyst in the superior left lobe of the liver under the diaphragm has also enlarged since the prior exam, n ow measuring in the 1.2 cm range. Suggest hepatic ultrasound to confirm benign appearance of these l esions. Degenerative changes in the thoracic spine. No lytic or blastic osseous lesion. IMPRESSION: 1. Mild diffuse interstitial thickening. 2. Nodular density in the right middle lobe is stable from 2009. 3. There are low-density lesions in the liver suggesting hepatic cysts. These appear to have enlarg ed and some may be new since 2009. Recommend correlation with hepatic ultrasound. The lung RADS findings are lung RADS 2, benign findings. Recommend annual yearly low-dose contrast C T of chest. POS: AGW
== END 2019-12-02 09:48 | disposition home or self-care (01) ==
LOC: BICCT 09:47
PROVIDERS: ATTEND Student in an Organized Health Care Education/Training Program
DX: Z12.2 Encounter for screening for malignant neoplasm of respiratory organs (principal); F17.211 Nicotine dependence, cigarettes, in remission; J98.4 Other disorders of lung; K76.89 Other specified diseases of liver
CPT/HCPCS: G0297

== ENCOUNTER 2019-12-29 09:19 | Outpatient (CLI) | payer MEDICARE ==
--- NOTE | 2019-12-29 09:51 | BD ---
EXAM: DEXA bone density examination HISTORY: 59-year-old postmenopausal female for screening COMPARISON: None FINDINGS: L1--bone mineral density 0.778 g/sq cm; T score -1.9 L2--bone mineral density 0.774 g/sq cm; T score -2.3 L3--bone mineral density 0.776 g/sq cm; T score -2.8 L4--bone mineral density 0.946 g/sq cm; T score -1.0 Total L1-L4--bone mineral density 0.826 g/sq cm; T score -2.0 Left femoral neck--bone mineral density0.565; T score -2.6 Total proximal left femur--bone mineral density 0.751; T score -1.6 IMPRESSION: Osteoporosis.
== END 2019-12-29 09:20 | disposition home or self-care (01) ==
LOC: BICMAMMO 09:19
PROVIDERS: ATTEND Student in an Organized Health Care Education/Training Program
DX: Z13.820 Encounter for screening for osteoporosis (principal); F17.200 Nicotine dependence, unspecified, uncomplicated; M81.0 Age-related osteoporosis without current pathological fracture
CPT/HCPCS: 77080

== ENCOUNTER 2020-01-03 10:02 | Outpatient (CLI) | payer MEDICARE ==
--- NOTE | 2020-01-03 12:27 | ULT ---
RIGHT UPPER QUADRANT ULTRASOUND: Date: 01/03/2020 INDICATION: Follow-up hepatic cyst described on recent CT. Correlation made to CT of 12/02/2019 which describes cystic-appearing lesions in the liver. FINDINGS: Ultrasound confirms benign-appearing liver cysts. The largest in the right lobe peripherally measures 4.0 cm and corresponds to a large cystic lesion seen on CT. Another cystic lesion by ultrasound nabor ures approximately 1.5 cm. No suspicious sonographic abnormality seen on ultrasound. Images of the gallbladder reveal at least two tiny echogenic foci along the gallbladder wall measurin g in the 2-3 mm range. These are most consistent with tiny gallbladder polyps. The gallbladder is oth erwise unremarkable. No evidence of gallstone. Common duct is normal caliber. Right kidney is unremarkable. Visualized pancreas is unremarkable as imaged. Pancreas is mostly obscured. IMPRESSION: 1. Hepatic cysts are confirmed by ultrasound. 2. Evidence of tiny gallbladder polyps. The gallbladder is otherwise unremarkable. POS: AH
== END 2020-01-03 10:03 | disposition home or self-care (01) ==
LOC: BICULT 10:02
PROVIDERS: ATTEND Student in an Organized Health Care Education/Training Program
DX: K76.89 Other specified diseases of liver (principal); K82.4 Cholesterolosis of gallbladder
CPT/HCPCS: 76705

== ENCOUNTER 2020-06-06 18:39 | Observation (INO) | payer MEDICARE ==
--- NOTE | 2020-06-06 19:26 | CT ---
EXAM: CT brain without contrast HISTORY: 2 syncopal episodes at home today COMPARISON: 03/24/2017 TECHNIQUE: Multiple contiguous axial images were obtained and a CT of the brain without contrast. FINDINGS: The brain is normal in morphology and attenuation without focal lesions or confluent areas of infarction. There is no evidence of hydrocephalus, intracranial hemorrhage, or extra-axial fluid collection. The calvarium and overlying soft tissues are unremarkable. The visualized paranasal sinuses and masto id air cells are well aerated. IMPRESSION: No evidence of acute intracranial abnormality
--- NOTE | 2020-06-06 19:33 | RAD ---
EXAM: Single view of the chest HISTORY: Syncope x2 COMPARISON: 12/03/[address] chest 12/02/2019 FINDINGS: Single view of the chest shows a normal sized cardiomediastinal silhouette. Atheroscleroti c calcifications are seen in the aorta. There is no evidence of consolidation, mass, or pleural effusion. No acute osseous abnormality. IMPRESSION: No evidence of acute cardiopulmonary disease
[2020-06-06 19:46] LABS: Hemoglobin 15.3 g/dL (12.0-16.0); Mean Corpuscular HGB CONC 34.7 g/dL (32.0-36.0); Mean Corpuscular Hemoglobin 32.3 pg (27.0-31.0); Mean Platelet Volume 7.2 fL (7.4-10.4); Platelet Count 376 thou/uL (130-400); RBC Distribution Width 13.7 % (11.5-14.5); Red Blood Cell (RBC) Count 4.74 mill/uL (4.20-5.40); White Blood Cell (WBC) Count 21.1 thou/uL (4.8-10.8)
[2020-06-06] MEDS ORDERED: Ondansetron PF 4 MG/2 ML Vial ONE (19:52)
[2020-06-06] MEDS ORDERED: Morphine 4 MG/ML VIAL ONE (19:52)
[2020-06-06 20:06] LABS: Band 1 % (5-11); Eosinophils 2 % (0-10); Lymphocytes 16 % (21-51); MDiff Complete? YES; Monocytes 8 % (0-10); Neutrophil 70 % (42-75); Platelet Morphology Comment Appears Adequate; RBC Morphology Normal; Reactive Lymphocytes 1 % (0-10)
[2020-06-06 20:09] LABS: ALT (SGPT) 11 U/L (8-55); AST (SGOT) 16 U/L (5-34); Albumin 4.2 g/dL (3.4-4.8); Alkaline Phosphatase 68 U/L (40-110); Anion Gap 18 mmol/L (10-20); BUN (Urea Nitrogen) 25 mg/dL (9.8-20.1); Bilirubin, Total 0.5 mg/dL (0.2-1.2); Calc. Creatinine Clearance 0 mL/min (70-130); Calcium 9.2 mg/dL (7.8-10.44); Carbon Dioxide 23 mmol/L (23-31); Chloride 99 mmol/L (98-107); Globulin 2.9 g/dL (2.4-3.5); Glucose 114 mg/dL (80-115); Potassium 4.2 mmol/L (3.5-5.1); Protein, Total 7.1 g/dL (6.0-8.3); Sodium 136 mmol/L (136-145)
[2020-06-06] MEDS ORDERED: Calcium Carbonate 500 MG ChewTAB PO PRN (22:49)
[2020-06-06] MEDS ORDERED: Senokot S 8.6-50 MG TAB PO PRN (22:49)
[2020-06-06] MEDS ORDERED: Acetaminophen 325 MG TAB PO PRN (22:49)
[2020-06-06] MEDS ORDERED: Ondansetron ODT 4 MG TAB PO PRN (22:49)
--- NOTE | 2020-06-06 22:49 | PDOC.FPRHP ---
- History of Present Illness Chief Complaint: syncope History of Present Illness: Pt is a 60 yo F with a PMH of HTN, COPD, depression, anxiety, hypothyroid, pre diabetes,osteoporosis who presents after 2 episodes of syncope earlier today. The first episode was around 2pm and the second one around 5 pm. Both times she went from sitting to standing to go perform a task . The first time she got up to put her dish in the sink and the second she got up to pour herself some tea. She states she felt a little dizzy but otherwise had no symptoms around her episodes of syncope. She is unsure how long she was down. She is unsure if she hit her head. She states she had been feeling well the morning and days before this episode. She only endorses occasional orthopnea which is new. She has never had a past syncopal event. Of note, she did visit her PCP the day before this episode and her Propranol was changed from 20mg daily to 40mg BID, which she did already take a dose of. She denies CP, SOB, abdominal pain, fever, chills, diarrhea, constipation. She denies any cardiac history. She does endorse left sided breast and side pain. She is unable to describe it but the pain is constant. It is worse with deep breaths or laughing and with palpation. ED Course: Morphine, Zofran, 1L Chest XR and Brain Ct negative - Allergies/Adverse Reactions Allergies Allergy/AdvReac Type Severity Reaction Status Date / Time Serotonin 5HT-3 Antagonists Allergy Unknown Verified 06/07/20 01:41 - Home Medications Medication Instructions Recorded Confirmed Type Albuterol Sulfate [Albuterol 1 ampule INH PRN PRN 09/07/18 06/07/20 History Sulfate Neb] Atorvastatin Calcium 20 mg PO DAILY 09/07/18 06/07/20 History Diclofenac Sodium [Diclofenac 2 gm TOP QID 09/07/18 06/07/20 History Sodium 1% Gel] Ipratropium [place] 1 ampule INH PRN PRN 09/07/18 06/07/20 History lamoTRIgine [LaMICtal] 100 mg PO DAILY 09/07/18 06/07/20 History Aspirin [Ecotrin Low Strength] 81 mg PO DAILY #30 tab 09/08/18 06/07/20 Rx Acetaminophen [Tylenol Regular 650 mg PO Q4H PRN tab 06/07/20 Rx Strength] Acetaminophen [Tylenol] 200 mg PO Q4H PRN 06/07/20 06/07/20 History Alendronate Sodium [Fosamax] 70 mg PO Q7D 06/07/20 06/07/20 History Rene/D3/Mag11/Zinc/Dietitian Chief/Vincenzo/Bor 1 tablet PO QAM-WM 06/07/20 06/07/20 History [Caltrate 600 D Plus Minerals] Mometasone/Formoterol 200/5 2 puff PRN PRN 06/07/20 06/07/20 History [Dulera 200 Mcg/5 Mcg Inhaler] QUEtiapine Fumarate [SEROquel] 25 mg PO HS 06/07/20 06/07/20 History metFORMIN [Glucophage] 500 mg PO QAM-WM 06/07/20 06/07/20 History - History PMHx: HTN, COPD, depression, anxiety, pre diabetes, hypothyroid, osteoporosis PSHx: hysterectomy, ganglion cyst removal in wrist, c section, tonsillectomy FHx: HTN, cardiac disease Social: denies. previous smoker but stopped last year. Had at least a 40 year pack hist ory - Review of Systems General: denies: fever/chills, fatigue Respiratory: denies: cough, congestion, shortness of breath Cardiovascular: reports: orthopnea. denies: chest pain Gastrointestinal: denies: nausea, vomiting, diarrhea Genitourinary: denies: incontinence Skin: reports: rashes Neurological: reports: syncope. denies: weakness - Vital signs BP:92/70 HR: 92 RR:19 Tmax: 98.5 Pox: 98% on RA Wt: 82kg - Physical Exam Constitutional: NAD, awake, alert and oriented HEENT: normocephalic and atraumatic, EOMI Neck: supple Heart: RRR, normal S1/S2, pulses present, no edema Lungs: CTAB, no respiratory distress, good air movement Abdomen: soft, non-tender Musculoskeletal: normal tone, ROM grossly normal -Musculoskeletal: tenderness to palpation over left breast and side Neurological: no focal deficit, DTRs 2+ Skin: no rash/lesions, capillary refill <2 seconds -Skin: no obvious lesions over left sided area of pain Heme/Lymphatic: no unusual bruising or bleeding Psychiatric: normal mood and affect, good judgment and insight, intact recent and remote memory FMR H&P: Results - Labs Result Diagrams: 06/07/20 02:57 06/07/20 15:57 Lab results: WBC 21.1 thou/uL (4.8-10.8) H 06/06/20 19:35 Hgb 15.3 g/dL (12.0-16.0) 06/06/20 19:35 Hct 44.1 % (36.0-47.0) 06/06/20 19:35 MCV 93.0 fL (78.0-98.0) 06/06/20 19:35 Plt Count 376 thou/uL (130-400) 06/06/20 19:35 Band Neuts % (Manual) 1 % (5-11) L 06/06/20 19:35 Sodium 136 mmol/L (136-145) 06/06/20 19:35 Potassium 4.2 mmol/L (3.5-5.1) 06/06/20 19:35 Chloride 99 mmol/L (98-107) 06/06/20 19:35 Carbon Dioxide 23 mmol/L (23-31) 06/06/20 19:35 BUN 25 mg/dL (9.8-20.1) H 06/06/20 19:35 Creatinine 1.94 mg/dL (0.6-1.1) H 06/06/20 19:35 Glucose 114 mg/dL (80-115) 06/06/20 19:35 Calcium 9.2 mg/dL (7.8-10.44) 06/06/20 19:35 Total Bilirubin 0.5 mg/dL (0.2-1.2) 06/06/20 19:35 AST 16 U/L (5-34) 06/06/20 19:35 ALT 11 U/L (8-55) 06/06/20 19:35 Alkaline Phosphatase 68 U/L (40-110) 06/06/20 19:35 Serum Total Protein 7.1 g/dL (6.0-8.3) 06/06/20 19:35 Albumin 4.2 g/dL (3.4-4.8) 06/06/20 19:35 - EKG Interpretation EKG: Normal SR R H&P: A/P - Plan # syncope -likely 2/2 new medication change versus orthostatics versus cardiac -CT head negative -echo pending -continuous cardiac monitoring -orthostatic vitals ordered, follow up -discontinue new higher dose of Propanolol BID # left side pain -likely 2/2 trauma with fall -CXR negative -Tylenol PRN, Morphine x1 -follow up with skin exam in morning to make sure patient does not have shingles developing # elevated WBC -21 on admission -no localizing signs of infection -follow up COVID swab ROLANDO on CKD 3 -It would be beneficial to stop lisinopril and metformin until she has recoverd -Consider changing medications all together -This appeared on labs prior to increase in BB -continue to monitor with AM labs #elevated Ddimer -cannot do CTA 2/2 patient's kidney function -Wells Score for PE is 0 -stable on clinical exam, not tachypneic or tachycardic -unlikely 2/2 PE, but consider to follow and correlate clinically -consider V/Q scan if kidney function does not improve -could be 2/2 COVID, swab pending # Hypothyroid -aware, continue home meds #HTN -aware, continue home meds #COPD -aware, continue home meds #depression/anxiety -aware, continue home meds #pre diabetes -aware #osteoporosis -aware Dispo: admit to , tele Obs. Anticipated LOS < 48 hours DVT ppx: Heparin Diet: HH Code: FULL PCP: Jose Alberto WILLIAMSON H&P: Upper Level - Plan Date/Time: 06/06/20 [id number] ITj DO, have evaluated this patient and agree with findings/plan as outlined by seo intern resident. Pertinent changes/additions are listed here. This is a 60 yo female with a pmh HLD, Bipolar disorder, HTN, COPD, Hypothyroidism who presents to the ER with a cc of syncope with LOC x2 today. She states that the first time she stood up and was walking to the kitchen to put up her plate when she woke up on the floor. She states that she has not had pre-syncopal symptoms such as dizziness, lightheadedness, or tunnel vision. She reports another syncopal event where she woke up on the floor and at that time decided to come in. She is unsure of how long she was out as these were unwitnessed events. She denied SOB, chest pain, palpitations, or headaches prior to these syncopal events. After the first event, she reports left sided chest pain with radiation up and down her side. She states the pain is exacerbated by coughing and deep breathing. She reports taking her BP at home and finding it to be lower than usual. She also reports orthopnea since this morning Of note, she was seen yesterday by her PCP where she described worsening tremors. She state she was taking propranolol 20mg daily and this was increased to 40mg BID. She states taking propranolol for her tremors caused by tardive dyskinesia and reports being tested for parkinsons in the past but this was negative. She did have a TSH yesterday that was 3.5 Objective Vitals: BP 131/77, HR 68, RR 20, Temp 98.4, SpO2 98% on RA, Wt. 81 kg General: NAD HEENT: MMM, AT/NC Cardio: RRR, no murmurs, no bruits heard in the neck Lungs: CTAB, pt has severe TTP of the rib cage mid axillary around ribs 7-10 on the left, no crepitus felt Abdomen: Soft, BS present Extremities: Diminished BLE pulses, no pain with palpation of calfs or thights MSK: No pain or crepitus with palpation of bilateral hips A/P Syncope likely 2/2 orthostasis from beta blockade -Admit to tele for monitoring -Obtain orthostatic vital signs -Stopping betablocker for now, may slowly restart after workup if it is felt that this is still needed -Given orthopnea, we will obtain an echocardiogram -DDx includes PE with chest pain and elevated D-dimer of 3, however vitals and EKG do not reflect this, carotid artery stenosis, however no bruits heard, arrhythmia and we will monitor tele ROLANDO on CKD 3 -It would be beneficial to stop lisinopril and metformin until she has recoverd -Consider changing medications all together -This appeared on labs prior to increase in BB Bipolar -Currently on lamictal and quetapine. The tardive dyskinesia maybe related sero quel -It maybe worth revisiting treatment of TD Hypothyroidism -Clinically and laboratorily euthymic Pre-diabetes -Hold metformin -Consider other agent Leukocytosis -WBC 21, no evidence of infection, may be stress related D-Dimer of 3 -No indication of PE or DVT -May consider venous dopplers with work up tomorrow if she develops leg pain Please see seo intern note for further information and management of chronic diseases Code: Full Prophylaxis: Heparin Family: none at bedside Fluids: SL Diet: HH Disposition: DC in 1-2 days PCP: NOHEMY Davalos Addendum - Attending - Attending Attestation Date/Time: 06/07/202012 I personally evaluated the patient and discussed the management with the team on the . I agree with the History, Examination, Assessment and Plan documented above with any addition or exceptions noted below. Possible medication change as etiology. Complete workup. Agree with lack of clinical suspicion for PE.
[2020-06-06 23:21] LABS: Troponin I Less than 0.010 ng/mL (< 0.028)
[2020-06-07 01:44] VITALS: BMI 30.2
[2020-06-07 03:04] LABS: #Basophils 0.1 thou/uL (0.0-0.2); #Eosinphils 0.1 thou/uL (0.0-0.7); #Lymphocytes 3.2 thou/uL (1.20-3.40); #Monocytes 0.8 thou/uL (0.11-0.59); #Neutrophils 9.7 thou/uL (1.40-6.50); %Basophils 0.5 % (0.0-1.0); %Eosinophils 0.7 % (0.0-10.0); %Lymphocytes 23.3 % (21.0-51.0); %Monocytes 5.6 % (0.0-10.0); %Neutrophils 69.9 % (42.0-75.0); Hemoglobin 13.3 g/dL (12.0-16.0); Mean Corpuscular HGB CONC 34.1 g/dL (32.0-36.0); Mean Corpuscular Hemoglobin 31.3 pg (27.0-31.0); Mean Corpuscular Volume 91.6 fL (78.0-98.0); Mean Platelet Volume 7.2 fL (7.4-10.4); Platelet Count 302 thou/uL (130-400); RBC Distribution Width 13.7 % (11.5-14.5); Red Blood Cell (RBC) Count 4.24 mill/uL (4.20-5.40); White Blood Cell (WBC) Count 13.9 thou/uL (4.8-10.8)
[2020-06-07 03:29] LABS: Troponin I Less than 0.010 ng/mL (< 0.028)
[2020-06-07 03:37] LABS: ALT (SGPT) 11 U/L (8-55); AST (SGOT) 12 U/L (5-34); Albumin 3.5 g/dL (3.4-4.8); Alkaline Phosphatase 53 U/L (40-110); Anion Gap 14 mmol/L (10-20); BUN (Urea Nitrogen) 29 mg/dL (9.8-20.1); Bilirubin, Total 0.6 mg/dL (0.2-1.2); Calc. Creatinine Clearance 50 mL/min (70-130); Calcium 8.2 mg/dL (7.8-10.44); Carbon Dioxide 24 mmol/L (23-31); Chloride 102 mmol/L (98-107); Globulin 2.6 g/dL (2.4-3.5); Glucose 198 mg/dL (80-115); Potassium 3.2 mmol/L (3.5-5.1); Protein, Total 6.1 g/dL (6.0-8.3); Sodium 137 mmol/L (136-145)
[2020-06-07] MEDS ORDERED: Ipratropium Bromide 2.5 ml Neb NEB PRN (04:57)
[2020-06-07] MEDS ORDERED: Albuterol Sulfate 2.5 mg/3 ml Neb NEB PRN (04:57)
[2020-06-07] MEDS ORDERED: Mometasone 200 MCG/Formoterol 5 MCG 120 PUFF INHALER INH PRN (04:57)
[2020-06-07] MEDS ORDERED: Alendronate Sodium 70 mg Tablet PO SCH (05:00)
[2020-06-07] MEDS ORDERED: Ondansetron ODT 4 MG TAB PO PRN (05:08)
[2020-06-07] MEDS ORDERED: Morphine 2 MG/ML VIAL SLOW IVP SCH (05:15)
[2020-06-07] MEDS: Diclofenac 1% 100 GM GEL TP SCH ×2 (05:46→11:21)
[2020-06-07] MEDS ORDERED: Calcium Carbonate 600 MG + Vit D TAB PO SCH (08:00)
[2020-06-07] MEDS ORDERED: Lactated Ringer's 1,000 ML IV SCH (08:15)
[2020-06-07] MEDS: Heparin 5,000 UNITS/ML VIAL SC SCH ×2 (08:17→17:10)
--- NOTE | 2020-06-07 08:30 | PDOC.FM ---
- Subjective Subjective: This morning complains of left chest wall pain, starting from Left shoulder and extending around to under the left breast. Worse with movement and touch. Better with rest. Did not improve with morphine or diclofenac gel. Denies CP, SOB, dizziness/lightheadedness, fever/chills, dysuria, hematuria, diarrhea/constipation, cough, recent illness. Does note recent med change with PCP. No rash. - Objective MAR Reviewed: Yes Vital Signs & Weight: Vital Signs (12 hours) Temp Pulse Resp BP BP BP Pulse Ox 06/07/20 07:18 97.9 F 80 20 98/67 99 06/07/20 04:02 98.3 F 80 18 101/57 L 98 06/07/20 00:58 112/57 L 106/59 L 06/07/20 00:54 97.8 F 69 16 129/59 L 98 Weight Weight 82.355 kg I&O: 06/06/20 06/07/20 06/08/20 06:59 06:59 06:59 Intake Total 480 Balance 480 Result Diagrams: 06/07/20 02:57 06/07/20 02:57 EKG Reviewed by me: Yes (Tele: NSR) Radiology Reviewed by me: Yes (CXR - WNL without evidence of rib fx) Phys Exam - Physical Examination Constitutional: NAD (uncomfortable 2/2 pain. A/O x4) HEENT: PERRLA, moist MMs Neck: supple Respiratory: no wheezing, no rales, no rhonchi, clear to auscultation bilateral Cardiovascular: RRR, no significant murmur, no rub, gallop Gastrointestinal: soft, non-tender, no distention, positive bowel sounds Chest wall TTP Skin: no rash Deviation from normal: No bruising Dx/Plan (1) Syncope Code(s): R55 - SYNCOPE AND COLLAPSE Status: Acute (2) ROLANDO (acute kidney injury) Code(s): N17.9 - ACUTE KIDNEY FAILURE, UNSPECIFIED Status: Acute - Plan Plan: 60yo F with h/o HTN, COPD, depression, osteoporosis presents for syncope with LOC. #Syncope with LOC - likely 2/2 new medication change with recent increased dose of propanolol - Positive orthostatics - CT head negative - echo pending - no acute events on tele. Normal EKG. - discontinue new higher dose of Propanolol BID - LR @ 120cc/hr #Left-sided MSk pain - 2/2 trauma with fall, reproducible on palpation. CXR negative for acute process or fx - no rash or evidence of zoster - Flexeril this AM #Leukocytosis - Likely reactive. Downtrended this AM. No s/s of infection - Admission COVID pending #ROLANDO on CKD 3 - Holding lisinopril and metformin until she has recovered - LR @ 120cc/hr, monitor. Replace lytes as indicated #Elevated D-dimer - no CTA 2/2 patient's ROLANDO - Wells Score for PE is 0 - Likely 2/2 ROLANDO on CKD. COVID screen pending - No suspicion for PE or DVT at this time, monitor #HTN -aware, holding home meds 2/2 hypotension #COPD -aware, continue home meds #depression/anxiety -aware, continue home meds #osteoporosis -aware DVT ppx: Heparin Diet: HH Code: FULL PCP: Jose Alberto Dispo: Admitted to tele Obs. Anticipated LOS < 48 hours. Sx control and workup pending.
[2020-06-07] MEDS ORDERED: Atorvastatin Calcium 20 MG TAB PO SCH (09:00)
[2020-06-07] MEDS ORDERED: lamoTRIgine 25 MG TAB PO SCH (09:00)
[2020-06-07] MEDS ORDERED: Aspirin 81 mg Enteric Coated Tablet PO SCH (09:00)
[2020-06-07 09:03] LABS: SARS-CoV-2 MS2 Positive; SARS-CoV-2 N Gene Negative; SARS-CoV-2 S Gene Negative; SARS-CoV-2 by NAA Not Detected (NotDetected); SARS-CoV-2 orf1ab Negative
[2020-06-07 11:15] VITALS: TEMP 98.3
[2020-06-07] MEDS ORDERED: Cyclobenzaprine 10 MG TAB PO SCH (11:15)
[2020-06-07] MEDS ORDERED: Potassium Chloride 20 MEQ TAB PO SCH (11:15)
[2020-06-07] MEDS ORDERED: Ketorolac Tromethamine 30 MG/ML VIAL IVP SCH (11:45)
[2020-06-07 16:22] VITALS: BP 99/61
[2020-06-07 16:37] LABS: Anion Gap 15 mmol/L (10-20); BUN (Urea Nitrogen) 28 mg/dL (9.8-20.1); Calc. Creatinine Clearance 58 mL/min (70-130); Calcium 8.3 mg/dL (7.8-10.44); Carbon Dioxide 21 mmol/L (23-31); Chloride 102 mmol/L (98-107); Glucose 146 mg/dL (80-115); Potassium 3.7 mmol/L (3.5-5.1); Sodium 134 mmol/L (136-145)
--- NOTE | 2020-06-10 08:49 | DIS ---
DATE OF ADMISSION: 06/06/2020 DATE OF DISCHARGE: 06/07/2020 RESIDENT: Quoc Choi MD ADMITTING ATTENDING: Rustam Bonilla MD DISCHARGE ATTENDING: Jabier Salazar MD CONSULTS: None. PROCEDURES: 1. Chest x-ray performed on 06/06/2020, demonstrating no acute cardiopulmonary disease. No osseous abnormality. 2. Brain CT performed on 06/06/2020, demonstrating no evidence of acute intracranial abnormality. 3. Echocardiogram performed on 06/07/2020, demonstrating a left ventricular size that was normal and ejection fraction of 50% to 55%. PRIMARY DIAGNOSES: 1. Iatrogenic orthostatic syncope, status post loss of consciousness and fall. 2. Left-sided musculoskeletal pain. 3. Acute kidney injury in the setting of chronic kidney disease, 3. SECONDARY DIAGNOSES: 1. Reactive leukocytosis. 2. Elevated D-dimer secondary to acute kidney injury. 3. Hypertension. 4. Chronic obstructive pulmonary disease. 5. Depression and anxiety. 6. Osteoporosis. DISCHARGE MEDICATIONS: 1. Ipratropium 1 ampule inhalation as needed. 2. Albuterol 1 ampule inhalation as needed. 3. Diclofenac gel 2 g topical q.i.d. 4. Lamictal 100 mg p.o. daily. 5. Aspirin 81 mg p.o. 6. Multivitamin one tablet p.o. q.a.m. 7. Fosamax 70 mg weekly. 8. Tylenol 200 mg p.o. q.4 hours p.r.n. 9. Dulera 2 puffs as needed. 10. Seroquel 25 mg p.o. at bedtime. 11. Metformin 500 mg p.o. q.a.m. 12. Atorvastatin 20 mg p.o. daily. DISCONTINUED MEDICATIONS: 1. Lisinopril 20 mg p.o. daily. 2. Hydrochlorothiazide 25 mg p.o. daily. 3. Propranolol 40 mg p.o. b.i.d. HISTORY OF PRESENT ILLNESS AND HOSPITAL COURSE: The patient is a 60-year-old female with history of hypertension, COPD, osteoporosis, who presented for syncope with loss of consciousness. She said she was eating dinner and got up to go to the kitchen and subsequently became dizzy and next thing she remembers she was lying on the floor. She had one additional episode of syncope. She was brought to the emergency department where she was found to be hypotensive and was given fluid bolus. EKG was normal in the emergency department. She was then subsequently admitted for a syncope with loss of consciousness. On telemetry, she had no acute events overnight. Of note, the patient was recently having increased dose of propranol to 40 mg twice daily. The patient is also on two blood pressure medications. These were held during her hospitalization. The patient also described a left-sided chest wall pain that was reproducible on palpation. Chest x-ray was negative for any acute rib fracture. The patient's pain was improved with Toradol and Flexeril. The patient also noted to have a mild ROLANDO, likely secondary to dehydration as well as blood pressure medications. On the day of discharge, the patient's repeat BMP showed an improvement of her ROLANDO. The patient's glucoses were stable and she was able to ambulate without any symptoms with the discontinuation of her blood pressure medications. I discussed with the patient that the echocardiogram was unremarkable and negative for any cardiac workup. It was determined that the patient's event was likely secondary to medications and it was recommended that she continue holding her blood pressure medications to check her blood pressure at home and follow up with primary care physician within 1 week. The patient voiced agreement understanding, was very eager to be discharged home. The patient was encouraged to continue p.o. hydration. It was also noted that the patient had an elevated D-dimer. However, she had a Wells score of 0 and no evidence of a PE or DVT and it was likely this was secondary to her ROLANDO. The patient was discharged home. Return precautions given. Questions answered. DISPOSITION: Stable. DISCHARGE INSTRUCTIONS: 1. Location: Home. 2. Diet: Heart healthy, diabetic. 3. Activity: As tolerated. 4. Followup: The patient will follow with primary care physician within 1 week of discharge. Job ID: [id number] [id number]
== END 2020-06-07 17:55 | disposition home or self-care (01) ==
LOC: ERS 18:39 → 2NO 22:10
PROVIDERS: ADMIT Emergency Medicine; ATTEND Emergency Medicine
DX: R55 Syncope and collapse (principal); I12.9 Hypertensive chronic kidney disease with stage 1 through stage 4 chronic kidney disease, or unspecified chronic kidney disease; N18.30 Chronic kidney disease, stage 3 unspecified; N17.9 Acute kidney failure, unspecified; D72.829 Elevated white blood cell count, unspecified; J44.9 Chronic obstructive pulmonary disease, unspecified; F41.9 Anxiety disorder, unspecified; F32.9 Major depressive disorder, single episode, unspecified; M81.0 Age-related osteoporosis without current pathological fracture; R73.03 Prediabetes; E03.9 Hypothyroidism, unspecified; Z79.82 Long term (current) use of aspirin; Z79.84 Long term (current) use of oral hypoglycemic drugs; Z79.899 Other long term (current) drug therapy; Z87.891 Personal history of nicotine dependence; Z88.8 Allergy status to other drugs, medicaments and biological substances; Z20.828 Contact with and (suspected) exposure to other viral communicable diseases
CPT/HCPCS: 70450; 71045; 80048; 80053 ×2; 83735; 84484 ×3; 85025 ×2; 85379; 93005; 93306; 99285; J2270; U0003; 36415; 87635; 96372; 96374; 96375; G0378; J1644; J1885; J2405

== ENCOUNTER 2020-12-06 10:03 | Outpatient (CLI) | payer MEDICARE | END 2020-12-06 10:04 | disposition home or self-care (01) | LOC: BICRAD 10:03 | PROVIDERS: ATTEND Internal Medicine Pulmonary Disease | DX: R06.00 Dyspnea, unspecified (principal) | CPT/HCPCS: 71046 ==

== ENCOUNTER 2021-05-29 08:51 | Outpatient (CLI) | payer MEDICARE | END 2021-05-29 08:52 | disposition home or self-care (01) | LOC: RAD 08:51 | PROVIDERS: ATTEND Internal Medicine Pulmonary Disease | DX: R06.00 Dyspnea, unspecified (principal) | CPT/HCPCS: 71046 ==

== ENCOUNTER 2021-06-13 14:37 | Outpatient (CLI) | payer MEDICARE | END 2021-06-13 14:38 | disposition home or self-care (01) | LOC: BICMAMMO 14:37 | PROVIDERS: ATTEND Student in an Organized Health Care Education/Training Program | DX: N63.0 Unspecified lump in unspecified breast (principal) | CPT/HCPCS: 76642; 77066; G0279 ==

== ENCOUNTER 2021-10-23 12:28 | Outpatient (CLI) | payer MEDICARE | END 2021-10-23 12:29 | disposition home or self-care (01) | LOC: MRI 12:28 | PROVIDERS: ATTEND Student in an Organized Health Care Education/Training Program | DX: G25.2 Other specified forms of tremor (principal); R42 Dizziness and giddiness; E78.5 Hyperlipidemia, unspecified; I10 Essential (primary) hypertension; R73.03 Prediabetes; Z72.0 Tobacco use; Z82.0 Family history of epilepsy and other diseases of the nervous system | CPT/HCPCS: 70553; 82565 ==